=== PATIENT | male | born 1995 | race American Indian/Alaskan Native ===

== ENCOUNTER 2021-05-24 13:18 | Emergency (ER) | payer SELFPAY ==
[2021-05-24 13:25] VITALS: BP 130/81
[2021-05-24] MEDS ORDERED: LIDOCAINE-MPF (1%) 10 MG/1 ML VIAL 5 ML INFILTRATI ONE (13:49)
--- NOTE | 2021-05-24 13:49 | Emergency Department Report ---
ED Male HPI - General Chief complaint: Urogenital-Male Stated complaint: penile leakage Time Seen by Provider: 05/24/21 13:32 Source: patient Mode of arrival: Ambulatory Limitations: No Limitations - History of Present Illness Initial comments: 26-year-old male presents to the ER today with complaints of penile discharge. He states that the symptoms started about 2 days ago. He describes it as a yellowish mucousy discharge. He denies any associated dysuria, hematuria, testicular pain or swelling, back pain or abdominal pain. Patient states that his ex-girlfriend told him about 2 to 3 days ago that she was positive for chlamydia. He reports history of gonorrhea when he was 17. He reports no additional symptoms at this time. MD Complaint: penile discharge -: days(s) (2) - Related Data Previous Rx's Medication Instructions Recorded Last Taken Type Doxycycline Hyclate [Doxycycline 100 mg PO BID #14 tablet 05/24/21 Unknown Rx Hyclate TAB] Allergies Allergy/AdvReac Type Severity Reaction Status Date / Time No Known Allergies Allergy Verified 05/24/21 13:24 ED Review of Systems ROS: Stated complaint: penile leakage Other details as noted in HPI Comment: All other systems reviewed and negative Gastrointestinal: denies: abdominal pain, nausea, vomiting, diarrhea, constipation, hematemesis, hematochezia Genitourinary: discharge. denies: urgency, dysuria, frequency, hematuria, testicular pain, testicular mass Musculoskeletal: denies: back pain, joint swelling, arthralgia, myalgia ED Past Medical Hx - Medications Home Medications: Home Medications Medication Instructions Recorded Confirmed Last Taken Type Doxycycline Hyclate [Doxycycline 100 mg PO BID #14 tablet 05/24/21 Unknown Rx Hyclate TAB] ED Physical Exam - General Limitations: No Limitations General appearance: alert, in no apparent distress - Head Head exam: Present: atraumatic, normocephalic, normal inspection - Eye Eye exam: Present: normal appearance, PERRL, EOMI Pupils: Present: normal accommodation - Respiratory Respiratory exam: Present: normal lung sounds bilaterally - Cardiovascular Cardiovascular Exam: Present: regular rate - Neurological Exam Neurological exam: Present: alert, oriented X3, CN II-XII intact, normal gait - Skin Skin exam: Present: intact ED Course Vital Signs 05/24/21 13:23 Temperature 98.8 F Pulse Rate 89 Respiratory 14 Rate Blood Pressure 130/81 O2 Sat by Pulse 97 Oximetry Critical care attestation.: If time is entered above; I have spent that time in minutes in the direct care of this critically ill patient, excluding procedure time. ED Disposition Clinical Impression: Penile discharge, Exposure to chlamydia Disposition: 01 HOME / SELF CARE / HOMELESS Is pt being admited?: No Does the pt Need Aspirin: No Condition: Stable Instructions: Safe Sex, Preventing Sexually Transmitted Infections, Adult Additional Instructions: I recommend that you take the doxycycline as prescribed to completion. Recommend no sexual intercourse for 7 days after completion of antibiotics. I do recommend that you practice safe sex. Follow-up with your PCP as needed. Return to the ER if your symptoms changes or worsens in any way. Prescriptions: Doxycycline Hyclate [Doxycycline Hyclate TAB] 100 mg PO BID #14 tablet Referrals: [facility] [Provider Group] - 3-5 Days Time of Disposition: 13:49
== END 2021-05-24 14:19 | disposition home or self-care (01) ==
LOC: ED 13:18
DX: R36.9 Urethral discharge, unspecified (principal); R30.0 Dysuria; R31.9 Hematuria, unspecified
CPT/HCPCS: 96372; 99281; J0696; J3490

== ENCOUNTER 2021-10-31 14:19 | Emergency (ER) | payer SELFPAY ==
[2021-10-31 17:55] VITALS: BP 104/74
--- NOTE | 2021-10-31 19:43 | Emergency Department Report ---
ED Male HPI - General Chief complaint: Urogenital-Male Stated complaint: PENIS PAIN X 2 DAYS Source: patient Mode of arrival: Ambulatory Limitations: No Limitations - History of Present Illness Initial comments: Patient is a 26-year-old -[place] male with no past medical history who presents to the ED with complaint of acute onset persistent intermittent dysuria, clear penile discharge for the last 4 days after having unprotected sexual intercourse a week ago. Patient states that the symptoms of been persistent and observe that he had an unprotected sexual intercourse. Patient denies testicular pain, fever, chills, hematuria, traumatic injury, nausea and vomiting, abdominal pain, diarrhea or low back pain. MD Complaint: penile discharge (Clear penile discharge), dysuria -: Sudden, days(s) (4) Location: penis Radiation: none Severity: moderate Severity scale (0 -10): 3 Quality: burning, dull Consistency: constant Improves with: none Worsens with: urination denies other symptoms, discharge, dysuria. denies: swelling, mass, rash, blood in urine, fever, nausea/vomiting - Related Data Sexually active: Yes Previous Rx's Medication Instructions Recorded Last Taken Type Doxycycline Hyclate [Doxycycline 100 mg PO BID #28 tablet 10/31/21 Unknown Rx Hyclate TAB] Allergies Allergy/AdvReac Type Severity Reaction Status Date / Time No Known Allergies Allergy Verified 05/24/21 13:24 ED Review of Systems ROS: Stated complaint: PENIS PAIN X 2 DAYS Other details as noted in HPI Constitutional: denies: chills, fever Eyes: denies: eye pain, eye discharge, vision change ENT: denies: ear pain, throat pain Respiratory: denies: cough, shortness of breath, wheezing Cardiovascular: denies: chest pain, palpitations Endocrine: no symptoms reported Gastrointestinal: denies: abdominal pain, nausea, vomiting, diarrhea Genitourinary: urgency, dysuria, frequency, discharge (Clear discharge). denies: hematuria Musculoskeletal: denies: back pain, joint swelling, arthralgia, myalgia, other Skin: denies: rash, lesions, change in color, change in hair/nails, pruritus Neurological: denies: headache, weakness, paresthesias Psychiatric: denies: anxiety, depression Hematological/Lymphatic: denies: easy bleeding, easy bruising ED Past Medical Hx - Medications Home Medications: Home Medications Medication Instructions Recorded Confirmed Last Taken Type Doxycycline Hyclate [Doxycycline 100 mg PO BID #28 tablet 10/31/21 Unknown Rx Hyclate TAB] ED Physical Exam - General Limitations: No Limitations General appearance: alert, in no apparent distress - Head Head exam: Present: atraumatic, normocephalic, normal inspection - Eye Eye exam: Present: normal appearance, PERRL, EOMI - ENT ENT exam: Present: normal exam, normal orophraynx, mucous membranes moist, TM's normal bilaterally, normal external ear exam - Neck Neck exam: Present: normal inspection, full ROM. Absent: tenderness - Respiratory Respiratory exam: Present: normal lung sounds bilaterally. Absent: respiratory distress, wheezes, rales, rhonchi, chest wall tenderness, accessory muscle use, decreased breath sounds - Cardiovascular Cardiovascular Exam: Present: regular rate, normal rhythm, normal heart sounds. Absent: systolic murmur, diastolic murmur, rubs, gallop - GI/Abdominal GI/Abdominal exam: Present: soft, normal bowel sounds. Absent: tenderness, guarding, rebound, hyperactive bowel sounds, hypoactive bowel sounds, organomegaly - exam: Present: normal inspection External exam: Present: normal external exam - Extremities Exam Extremities exam: Present: normal inspection, full ROM, normal capillary refill. Absent: tenderness, pedal edema, joint swelling - Back Exam Back exam: Present: normal inspection, full ROM. Absent: tenderness, CVA tenderness (R), CVA tenderness (L), muscle spasm, paraspinal tenderness, vertebral tenderness - Neurological Exam Neurological exam: Present: alert, oriented X3, CN II-XII intact, normal gait, reflexes normal - Psychiatric Psychiatric exam: Present: normal affect, normal mood - Skin Skin exam: Present: warm, dry, intact, normal color. Absent: rash ED Course Vital Signs 10/31/21 17:54 Temperature 97.6 F Pulse Rate 76 Respiratory 16 Rate Blood Pressure 104/74 [Right] O2 Sat by Pulse 97 Oximetry ED Medical Decision Making - Medical Decision Making This is a 26-year-old -[place] male with no past medical history who presents to the ED with complaint of acute onset persistent intermittent dysuria, clear penile discharge for the last 4 days after having unprotected sexual intercourse a week ago. Patient states that the symptoms of been pe rsistent and observe that he had an unprotected sexual intercourse. In the ED, patient is alert and oriented x3 and is not in any distress. Based on the history and physical exam findings, the patient was empirically treated for suspected chlamydia exposure or infection. Patient will discharge home on medications and advised to follow-up with [facility] for further STD testing including syphilis and HIV. Patient was advised to ensure that his sexual partner also gets treated for the same at the health department. Patient was advised return to the ED immediately if symptoms get worse. - Differential Diagnosis Chlamydia exposure; urethritis; STD; UTI; Critical care attestation.: If time is entered above; I have spent that time in minutes in the direct care of this critically ill patient, excluding procedure time. ED Disposition Clinical Impression: Exposure to chlamydia, Chlamydial urethritis in male, STD (sexually transmitted disease) Disposition: 01 HOME / SELF CARE / HOMELESS Is pt being admited?: No Does the pt Need Aspirin: No Condition: Stable Instructions: Chlamydia, Male, Urethritis, Adult, Safe Sex Additional Instructions: Take medications as advised, observe safe sexual practices, ensure that your sexual partners also get treated for the same. Return to the ED immediately if symptoms get worse. Otherwise follow-up with the [facility] for further STD testing including HIV and syphilis. Prescriptions: Doxycycline Hyclate [Doxycycline Hyclate TAB] 100 mg PO BID #28 tablet Referrals: [facility] [Outside] - 7-10 days Time of Disposition: 19:45 Print Language: SAMOAN
== END 2021-11-01 08:03 | disposition home or self-care (01) ==
LOC: ED 14:19
DX: A56.01 Chlamydial cystitis and urethritis (principal); Z20.2 Contact with and (suspected) exposure to infections with a predominantly sexual mode of transmission
CPT/HCPCS: 99282